=== PATIENT | female | born 1995 | race African-American/Black ===

== ENCOUNTER 2019-09-13 19:15 | Emergency (ER) | payer OTHER ==
[~2019-09-13] VITALS: Ht 175.3 cm; Wt 63.6 kg
[~2019-09-13 19:15] MED LIST: CLINDAMYCIN150 MG PO; LORCET 5-325 MG1 TAB
[2019-09-13 20:55] LABS: HEMOGLOBIN 10.4 g/dl (12.0-16.0); IMMATURE GRANULOCYTES 0.3 % (0.0-5.0); MEAN CELL VOLUME 81.8 fL CALC (80.0-100.0); MEAN CORPUSCULAR HGB 26.6 pG CALC (26.0-32.0); MEAN CORPUSCULAR HGB CONC 32.5 g/L CALC (32.0-36.0); NEUT# 3.06 thou/uL (2.00-7.15); RED BLOOD COUNT 3.91 mill/uL (4.20-5.60); RED CELL DISTRI WIDTH 12.8 % (11.5-15.5)
[2019-09-13] MEDS ORDERED: TAM75CAP PO (21:56)
[2019-09-13 22:22] VITALS: BP 108/76
== END 2019-09-13 22:24 | disposition home or self-care (01) | DRG 153 ==
LOC: ED 19:15
PROVIDERS: Family Medicine
DX: J11.1 Influenza due to unidentified influenza virus with other respiratory manifestations (principal)